=== PATIENT | male | born 1945 | race Caucasian/White ===

== ENCOUNTER 2017-12-16 13:37 | Day surgery (SDC) | payer MEDICARE ==
[2017-12-11 08:54] LABS: BASOPHILS % (AUTO) 0.4 % (0-1); EOSINOPHILS # (AUTO) 0.1 X10'3 (0-0.9); EOSINOPHILS % (AUTO) 1.5 % (0-6); HEMATOCRIT 47.9 % (42.0-52.0); HEMOGLOBIN 15.8 g/dl (14.0-17.9); LYMPHOCYTES # (AUTO) 0.8 X10'3 (1.1-4.8); LYMPHOCYTES % (AUTO) 13.2 % (21-51); MEAN CORPUSCULAR HEMOGLOBIN 29.5 PG (27.0-31.0); MEAN CORPUSCULAR VOLUME 89.4 FL (78-98); MEAN PLATELET VOLUME 9.1 FL (7.4-10.4); MONOCYTES # (AUTO) 0.8 X10'3 (0-0.9); MONOCYTES % (AUTO) 12.5 % (2-12); NEUTROPHILS # (AUTO) 4.6 X10'3 (1.8-7.7); NEUTROPHILS % (AUTO) 72.4 % (42-75); PLATELET COUNT 184 X10'3 (140-440); RED BLOOD COUNT 5.36 X10'6 (4.70-6.10); RED CELL DISTRIBUTION WIDTH 17.5 % (11.5-14.5); WHITE BLOOD COUNT 6.4 X10'3 (4.5-11.0)
[2017-12-11 08:57] LABS: CLARITY,URINE CLEAR (Clear); COLOR,URINE YELLOW (Yellow); GLUCOSE, URINE NEGATIVE (Neg); KETONES,URINE NEGATIVE (Neg); LEUKOCYTE ESTERASE ,URINE NEGATIVE (Neg); NITRITES, URINE NEGATIVE (Neg); OCCULT BLOOD,URINE MODERATE (Neg); PROTEIN,URINE 30 mg/dl (Neg); UROBILINOGEN,URINE 0.2 E.U/dL (0.2-1.0)
[2017-12-11 08:58] LABS: UA COLLECTION TYPE VOIDED
[2017-12-11 09:03] LABS: WBC,URINE NONE SEEN /HPF (0-4)
[2017-12-11 09:04] LABS: BACTERIA,URINE NONE SEEN /HPF (Neg); MUCUS STRANDS NONE SEEN /LPF (Neg); SQUAMOUS EPITHELIAL CELL,UR FEW /LPF (FEW)
[2017-12-11 09:08] LABS: ALBUMIN 3.7 G/DL (3.4-5.0); ANION GAP 6 (8-16); BLOOD UREA NITROGEN 36 MG/DL (7-18); CALCIUM 10.1 MG/DL (8.5-10.1); CHLORIDE 100 MMOL/L (99-107); CREATININE 1.06 MG/DL (0.60-1.10); GLUCOSE 119 MG/DL (70-104); POTASSIUM 3.9 MMOL/L (3.5-5.1); SODIUM 138 MMOL/L (135-145); TOTAL CARBON DIOXIDE 32.4 MMOL/L (24-32); eGFR 69 ML/MIN
[~2017-12-16] VITALS: Ht 170.2 cm; Wt 101.2 kg
[~2017-12-16 13:37] MED LIST: ASPI81TA52 PO; ATOR10TA70 PO; CALC-787 PEG; CALC1TAB82 PO; CALC667C2 PO; CHOL100046 PO; CLON1TAB4 PO; FOLI1CAP7 PO; FOLI1TAB16 PO; FURO40TA4 PO; HYDR-4069 PO; KEN0.1O TP; LABE100T PO; LACT1CAP65 PO; MULT-1074 PO; OMEG1CAP2 PO; PANT-47 PO; POLY10DR EACHEYE; POLY17PO10 PO; PRED1DRO EACHEYE; PRO30XLT PO; ROPI0.2540 PO; SENN-173 PO; THI100T PO; UBID200C18 PEG; ZIN220C PO
[2017-12-16] MEDS ORDERED: normal saline 1000ml 1,000 ML IV SCH (14:00)
[2017-12-16] MEDS ORDERED: diphenhydrAMINE 25mg capsule PO PRN (14:00)
[2017-12-16] MEDS ORDERED: LORazepam 0.5 MG tablet PO PRN (14:00)
[2017-12-16] MEDS ORDERED: MYCO500T5 PO (14:24)
[2017-12-16] MEDS ORDERED: TACR1CAP2 PO (14:24)
[2017-12-16] MEDS ORDERED: ACET-2615 PO (14:24)
[2017-12-16] MEDS ORDERED: NITR0.4T SL (14:24)
[2017-12-16] MEDS ORDERED: THI100T PO (14:24)
[2017-12-16] MEDS ORDERED: CLON-528 PO (14:24)
[2017-12-16] MEDS ORDERED: GLYC15DR PO (14:24)
[2017-12-16] MEDS ORDERED: DOCU50CA13 PO (14:24)
[2017-12-16] MEDS ORDERED: NA P1TAB PO (14:24)
[2017-12-16] MEDS ORDERED: FLO0.4C PO (14:24)
[2017-12-16 14:25] VITALS: BP 126/79
[2017-12-16] MEDS ORDERED: ceFAZolin 1GM/D5W- ADD-VANTAGE 50 ML IV SCH (16:00)
[2017-12-16] MEDS ORDERED: LIDOcaine 1% w/EPI 1:100,000 30ml vial (MDV) ONE (16:17)
[2017-12-16] MEDS ORDERED: ceFAZolin 1000mg inj ONE (16:17)
[2017-12-16] MEDS ORDERED: ceFAZolin 1GM/D5W- ADD-VANTAGE 50 ML IV ONE (16:17)
[2017-12-16] MEDS ORDERED: fentaNYL/PF 50MCG/1 ML 2ML syringe ONE (17:17)
[2017-12-16] MEDS ORDERED: midazolam 2 mg/2 ml injection ONE (17:17)
[2017-12-16 18:54] VITALS: BP 150/82
[2017-12-16 19:00] VITALS: BP 132/66
[2017-12-16 19:15] VITALS: BP 114/57
[2017-12-16 19:30] VITALS: BP 98/64
[2017-12-16 19:45] VITALS: BP 100/68
== END 2017-12-16 20:00 | disposition home or self-care (01) ==
LOC: SSTAY O 13:37
PROVIDERS: ATTEND Internal Medicine Interventional Cardiology
DX: I44.1 Atrioventricular block, second degree (principal); I12.9 Hypertensive chronic kidney disease with stage 1 through stage 4 chronic kidney disease, or unspecified chronic kidney disease; N18.4 Chronic kidney disease, stage 4 (severe); I47.9 Paroxysmal tachycardia, unspecified; G47.10 Hypersomnia, unspecified; E66.9 Obesity, unspecified; I95.89 Other hypotension; Z79.82 Long term (current) use of aspirin; Z94.0 Kidney transplant status
CPT/HCPCS: 33208; 80048; 81001; 85025; 93005; 99152; 99153; A4565; C1785; C1898; J0690; J2250; J3010; J3490; J7030; Q0163; A4620

== ENCOUNTER 2020-05-17 20:06 | Emergency (ER) | payer MEDICARE ==
[~2020-05-17 20:06] MED LIST changes: +ACET-2615 PO; -CALC-787 PEG; -CALC1TAB82 PO; -CALC667C2 PO; +CLON-528 PO; -CLON1TAB4 PO; +DOCU50CA13 PO; +FLO0.4C PO; -FOLI1CAP7 PO; -FURO40TA4 PO; +GLYC15DR PO; -HYDR-4069 PO; -KEN0.1O TP; -LABE100T PO; -LACT1CAP65 PO; -MULT-1074 PO; +MYCO500T5 PO; +NA P1TAB PO; +NITR0.4T SL; -OMEG1CAP2 PO; -POLY10DR EACHEYE; -POLY17PO10 PO; -PRO30XLT PO; -ROPI0.2540 PO; -SENN-173 PO; +TACR1CAP2 PO; -UBID200C18 PEG; -ZIN220C PO; +calcium chloride 100 MG/1 ML inj IV ONE; +dextrose 50%-water 50ml dispensing syringe IV ONE; +diatrozoate meglu/diatrozoate sod (37% iodine) 120ML oral solution ONE; +epiNEPHrine 0.1mg/ml 10ml syringe ONE
--- NOTE | 2020-05-17 20:32 | NUR ---
kelley leal per sammie
--- NOTE | 2020-05-17 20:49 | NUR ---
[facility] called referral number [id number] sonu armendariz is the contact
--- NOTE | 2020-05-17 21:10 | NUR ---
[facility] office called deputy romano
--- NOTE | 2020-05-17 22:40 | NUR ---
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
== END 2020-05-17 22:03 | disposition expired ==
LOC: ER 20:06
DX: J98.8 Other specified respiratory disorders (principal); I46.9 Cardiac arrest, cause unspecified; I10 Essential (primary) hypertension; Z98.890 Other specified postprocedural states; Z79.82 Long term (current) use of aspirin; Z79.899 Other long term (current) drug therapy
CPT/HCPCS: 31500; 92950; 94799; 99285; J0171; Q9963